=== PATIENT | male | born 1945 | race Caucasian/White ===

== ENCOUNTER 2018-04-22 15:28 | Inpatient (IN) | payer MEDICARE, OTHER ==
[~2018-04-22] VITALS: Ht 172.7 cm; Wt 78.2 kg
--- NOTE | 2018-04-22 15:55 | EKG ---
[address] [address] Test Date: 2018-04-22 Test Time: 15:38:39 Pat Name: WILLIAM VASQUEZ Department: Room: Gender: M Mechanical Maintenance Technician: SHERI : 1945 Requested By: JEAN PERLA Order Number: [id number] Reading MD: Darian Valderrama MD Measurements Intervals Apex Rate: 79 P: 36 CO: 144 QRS: 9 QRSD: 88 T: 37 QT: 344 QTc: 395 Interpretive Statements SR Electronically Signed On 04-28-2018 10:32:37 CDT by Darian Valderrama MD
--- NOTE | 2018-04-22 15:59 | RAD ---
CHEST AP ONLY dated 04/22/2018 3:29 PM. Comparison: None. Clinical Indication: SHORT OF AIR WITH EXHAUSTION TIMES 3 DAYS. Findings: Single upright portable exam performed. Heart and mediastinal contours are within normal limits. Lungs are clear without focal consolidation. Vascular interstitium within normal limits. No pleural effusion or pneumothorax. Mild elevation of right hemidiaphragm. Impression: Negative portable chest. Electronically signed by: Trent Hagan MD (04/22/2018 3:55 PM) [id number]
[2018-04-22] MEDS ORDERED: IV NORMAL SALINE 1,000ML 1,000 ML IV ONE ×3 (16:00→16:30)
[2018-04-22 16:06] LABS: BASO # 0.1 x10^3/uL (0.0-0.2); BASO % 1 % (0-3); EOS # 0.1 x10^3/uL (0.0-0.7); EOS % 1 % (0-3); HEMATOCRIT 39.5 % (39.0-53.0); HEMOGLOBIN 13.8 g/dL (13.0-17.5); LYMPH # 1.8 x10^3/uL (1.0-4.8); LYMPH % 19 % (24-48); MEAN CORPUSCULAR HEMOGLOBIN 31 pg (25-35); MEAN CORPUSCULAR HGB CONC 35 g/dL (31-37); MEAN CORPUSCULAR VOLUME 90 fL (79-100); MONO # 1.5 x10^3/uL (0.0-1.1); MONO % 16 % (0-9); NEUT # 5.8 x10^3uL (1.8-7.7); NEUT % 63 % (31-73); PLATELET COUNT 166 x10^3/uL (140-400); RED CELL DISTRIBUTION WIDTH 13.8 % (11.5-14.5); WHITE BLOOD COUNT 9.2 x10^3/uL (4.0-11.0)
[2018-04-22 16:20] LABS: ALBUMIN 3.7 g/dL (3.4-5.0); ALBUMIN/GLOBULIN RATIO 1.1 (1.0-1.7); CALCIUM 9.2 mg/dL (8.5-10.1); CREATININE 2.8 mg/dL (0.7-1.3); GFR 22.3; POTASSIUM 3.4 mmol/L (3.5-5.1); TOTAL BILIRUBIN 1.6 mg/dL (0.2-1.0); TOTAL PROTEIN 7.2 g/dL (6.4-8.2)
[2018-04-22 16:44] LABS: BACTERIA,URINE 0 /HPF (0-FEW); BILIRUBIN,URINE NEG (NEG); CLARITY,URINE HAZY; COLOR,URINE YELLOW; GLUCOSE,URINE NEG (NEG); NITRITE,URINE NEG (NEG); SQUAMOUS EPITHELIAL CELL,UR FEW /LPF; UROBILINOGEN,URINE 1 mg/dL (0.2 mg/dL)
[2018-04-22 16:45] LABS: HYALINE CASTS, URINE MOD /HPF
--- NOTE | 2018-04-22 17:13 | ED.ADGEN ---
Past History Past Medical History: GERD, Hypertension Past Surgical History: No Surgical History Alcohol Use: None Drug Use: None Adult General Chief Complaint Chief Complaint Generalized fatigue and loss of appetite HPI HPI Patient is a 72-year-old male with history of hypertension and GERD who presents with general fatigue and loss of appetite. Symptom onset was several days ago. Patient reports loss of energy decreased appetite and thirst. He has not been eating or drinking his usual daily intake. Denies fever chills, nausea vomiting or sweats. Denies abdominal pain chest pain. No urinary frequency urgency. No new medications or missed medications. No other acute symptoms or complaints. Been evaluated for symptoms prior to today's visit.[] Review of Systems Review of Systems Review symptoms as per history of present illness. All other review symptoms are negative. All other systems were reviewed and found to be within normal limits, except as documented in this note. Current Medications Current Medications Current Medications Medications (Trade) Dose Ordered Sig/Eduar Start Time Stop Time Status Last Admin Dose Admin Sodium Chloride 1,000 ml @ 1,000 mls/hr 1X ONCE 04/22/18 16:30 04/22/18 17:29 Allergies Allergies Allergies Coded Allergies Type Severity Reaction Last Updated Verified Penicillins Allergy Intermediate 04/22/18 Yes codeine Allergy Intermediate 04/22/18 Yes Physical Exam Physical Exam Constitutional: Well developed, well nourished, no acute distress, non-toxic appearance. [] HENT: Normocephalic, atraumatic, bilateral external ears normal, oropharynx moist, nose normal. [] Eyes: PERRLA, EOMI, conjunctiva normal. [] Neck: Normal range of motion, no tenderness. [] Cardiovascular:Heart rate regular rhythm, no murmur [] Lungs & Thorax: Bilateral breath sounds clear to auscultation [] Abdomen: Bowel sounds normal, soft, no tenderness. [] Skin: Warm, dry. [] Back: No tenderness, no CVA tenderness. [] Extremities: No tenderness. [] Neurologic: Alert and oriented X 3, normal motor function, normal sensory function, no focal deficits noted. [] Psychologic: Affect normal, judgement normal, mood normal. [] Current Patient Data Vital Signs Vital Signs Date Time Temp Pulse Resp B/P (MAP) Pulse Ox O2 Delivery O2 Flow Rate FiO2 04/22/18 16:25 85 18 103/54 (70) 98 Room Air 04/22/18 15:49 98.4 Lab Results Laboratory Tests Test 04/22/18 15:45 04/22/18 15:58 White Blood Count 9.2 x10^3/uL (4.0-11.0) Red Blood Count 4.40 x10^6/uL (4.30-5.70) Hemoglobin 13.8 g/dL (13.0-17.5) Hematocrit 39.5 % (39.0-53.0) Mean Corpuscular Volume 90 fL (79-100) Mean Corpuscular Hemoglobin 31 pg (25-35) Mean Corpuscular Hemoglobin Concent 35 g/dL (31-37) Red Cell Distribution Width 13.8 % (11.5-14.5) Platelet Count 166 x10^3/uL (140-400) Neutrophils (%) (Auto) 63 % (31-73) Lymphocytes (%) (Auto) 19 % (24-48) L Monocytes (%) (Auto) 16 % (0-9) H Eosinophils (%) (Auto) 1 % (0-3) Basophils (%) (Auto) 1 % (0-3) Neutrophils # (Auto) 5.8 x10^3uL (1.8-7.7) Lymphocytes # (Auto) 1.8 x10^3/uL (1.0-4.8) Monocytes # (Auto) 1.5 x10^3/uL (0.0-1.1) H Eosinophils # (Auto) 0.1 x10^3/uL (0.0-0.7) Basophils # (Auto) 0.1 x10^3/uL (0.0-0.2) Sodium Level 135 mmol/L (136-145) L Potassium Level 3.4 mmol/L (3.5-5.1) L Chloride Level 98 mmol/L (98-107) Carbon Dioxide Level 29 mmol/L (21-32) Anion Gap 8 (6-14) Blood Urea Nitrogen 35 mg/dL (8-26) H Creatinine 2.8 mg/dL (0.7-1.3) H Estimated GFR (Cockcroft-Gault) 22.3 BUN/Creatinine Ratio 13 (6-20) Glucose Level 118 mg/dL (70-99) H Calcium Level 9.2 mg/dL (8.5-10.1) Total Bilirubin 1.6 mg/dL (0.2-1.0) H Aspartate Amino Transferase (AST) 17 U/L (15-37) Alanine Aminotransferase (ALT) 18 U/L (16-63) Alkaline Phosphatase 56 U/L (46-116) Creatine Kinase 105 U/L (39-308) Troponin I Quantitative < 0.017 ng/mL (0-0.055) Total Protein 7.2 g/dL (6.4-8.2) Albumin 3.7 g/dL (3.4-5.0) Albumin/Globulin Ratio 1.1 (1.0-1.7) Urine Collection Type Unknown Urine Color Yellow Urine Clarity Hazy Urine pH 5.5 Urine Specific [place] 1.020 Urine Protein 30 mg/dl (NEG-TRACE) Urine Glucose (UA) Neg mg/dL (NEG) Urine Ketones (Stick) 15 mg/dL (NEG) Urine Blood Neg (NEG) Urine Nitrite Neg (NEG) Urine Bilirubin Neg (NEG) Urine Urobilinogen Dipstick 1 mg/dL (0.2 mg/dL) Urine Leukocyte Esterase Neg (NEG) Urine RBC 3-5 /HPF (0-2) Urine WBC 1-4 /HPF (0-4) Urine Squamous Epithelial Cells Few /LPF Urine Transitional Epithelial Cells Few /LPF Urine Bacteria 0 /HPF (0-FEW) Urine Hyaline Casts Mod /HPF Urine Mucus Mod /LPF EKG EKG [EKG: Reviewed] Radiology/Procedures Radiology/Procedures [] Course & Med Decision Making Course & Med Decision Making Pertinent Labs and Imaging studies reviewed. (See chart for details) [Blood pressure, symptoms mildly improved with treatment. Baseline creatinine is 1.7. Today's creatinine is 2.8. Will admit to the hospital for further evaluation and treatment.] Final Impression Final Impression [1. Acute kidney injury 2. Generalized weakness] Dragon Disclaimer Dragon Disclaimer This electronic medical record was generated, in whole or in part, using a voice recognition dictation system. JEAN PERLA DO Apr 22, 2018 17:12
[2018-04-22 17:54] VITALS: BP 125/71
[2018-04-22] MEDS ORDERED: ASPI-630 PO (18:10)
[2018-04-22] MEDS ORDERED: LOSA1TAB22 PO (18:10)
[2018-04-22] MEDS ORDERED: GABA800T2 PO (18:10)
[2018-04-22] MEDS ORDERED: MELO15TA6 PO (18:10)
[2018-04-22] MEDS ORDERED: FLUO20CA16 PO (18:10)
[2018-04-22] MEDS ORDERED: ZOLP10TA PO (18:10)
[2018-04-22] MEDS ORDERED: OMEP20CA9 PO (18:10)
[2018-04-22] MEDS ORDERED: ATOR20TA PO (18:10)
[2018-04-22 20:07] VITALS: BP 112/68
[2018-04-22] MEDS ORDERED: ZOLPIDEM 5 MG TABLET. PO PRN (20:15)
[2018-04-22] MEDS: ZOLPIDEM 5 MG TABLET. PO SCH (21:13)
[2018-04-22] MEDS: PANTOPRAZOLE 40 MG TABLET. PO SCH (21:13)
[2018-04-22] MEDS: ATORVASTATIN CALCIUM 20 MG TABLET PO SCH (21:13)
[2018-04-22 22:33] VITALS: BP 115/70
[2018-04-23 05:30] VITALS: BP 128/77
[2018-04-23 07:46] LABS: CALCIUM 8.4 mg/dL (8.5-10.1); CREATININE 2.6 mg/dL (0.7-1.3); GFR 24.3; POTASSIUM 4.1 mmol/L (3.5-5.1)
[2018-04-23 07:49] LABS: BASO # 0.1 x10^3/uL (0.0-0.2); BASO % 1 % (0-3); EOS % 0 % (0-3); HEMATOCRIT 35.2 % (39.0-53.0); HEMOGLOBIN 12.3 g/dL (13.0-17.5); LYMPH # 1.1 x10^3/uL (1.0-4.8); LYMPH % 14 % (24-48); MEAN CORPUSCULAR HEMOGLOBIN 31 pg (25-35); MEAN CORPUSCULAR HGB CONC 35 g/dL (31-37); MEAN CORPUSCULAR VOLUME 90 fL (79-100); MONO # 1.1 x10^3/uL (0.0-1.1); MONO % 14 % (0-9); NEUT # 5.7 x10^3uL (1.8-7.7); NEUT % 71 % (31-73); PLATELET COUNT 155 x10^3/uL (140-400); RED BLOOD COUNT 3.94 x10^6/uL (4.30-5.70); RED CELL DISTRIBUTION WIDTH 13.8 % (11.5-14.5)
[2018-04-23] MEDS ORDERED: FLUoxetine HCL 20 MG CAPSULE PO SCH (08:00)
[2018-04-23] MEDS: ASPIRIN 81 MG TAB.CHEW PO SCH (08:31)
[2018-04-23] MEDS: GABAPENTIN 400 MG CAPSULE. PO SCH (08:31)
[2018-04-23 11:00] VITALS: BP 118/62
--- NOTE | 2018-04-23 15:31 | RAD ---
PQRS Compliance Statement: One or more of the following individualized dose reduction techniques were utilized for this examination: 1. Automated exposure control 2. Adjustment of the mA and/or kV according to patient size 3. Use of iterative reconstruction technique CT ABDOMEN PELVIS WO CONTRAST Clinical Indication: Acute on chronic kidney injury. No previous surgery or injury to abdomen Comparison: None. Technique: Helical CT imaging of the abdomen and pelvis is performed without IV or oral contrast. Findings: Evaluation of solid organs and bowel is limited without oral and IV contrast, decreasing sensitivity for detection of pathology. Consolidation in the posterior right lower lobe is mild to moderate. Mild atelectasis or scarring in the left lower lobe. Cardiac size normal. Cholelithiasis. Liver, spleen, pancreas, adrenal glands, and abdominal aorta caliber are normal. Bilateral perinephric stranding. No renal calculus. No ureteral calculus. No hydronephrosis. Urinary bladder is normal. Stomach unremarkable. No abdominal adenopathy or free fluid. No dilated small bowel. No colon wall thickening. No secondary signs of appendicitis. Small bilateral fat-containing inguinal hernias. Prostate is mildly enlarged. Degenerative spondylosis of the thoracolumbar spine. IMPRESSION: 1. Mild to moderate consolidation in the posterior right lower lobe. Considerations include atelectasis, pneumonia, aspiration, or scarring. 2. No hydronephrosis. Bilateral perinephric stranding, considerations include normal variant for patient age versus renal insufficiency. Please note noncontrast CT is not sensitive for evaluation of pyelonephritis. 3. Cholelithiasis. 4. Prostate is mildly enlarged. Electronically signed by: Jose Roberto Rodgers MD (04/23/2018 3:28 PM) [id number]
[2018-04-23 15:53] VITALS: BP 134/67
--- NOTE | 2018-04-23 16:19 | HP ---
ADMIT DATE: 04/22/2018 HISTORY OF PRESENT ILLNESS: The patient is a 72-year-old male patient who came to the Emergency Room complaining of generalized aches and pains, fatigue, loss of appetite, headache who has not been eating or drinking his usual daily intake. Denied any fever, chills, nausea, vomiting, or sweats. Denied any abdominal pain or chest pain. Denied any urinary frequency, dysuria, or hematuria. Apparently, he was not started on any new medication. He has not missed any of his medication and was evaluated in the Emergency Room and his lab work showed that his kidney function has risen from his baseline creatinine of 1.7 in October of this year to 2.8. He was also found to be mildly hypokalemic. He was admitted for further evaluation and management. PAST MEDICAL HISTORY: Significant for hypertension, hyperlipidemia, generalized osteoarthritis, bilateral cataracts, benign prostatic hypertrophy, and chronic renal failure. PAST SURGICAL HISTORY: Significant for 4 back surgeries, 3 shoulder surgeries, left hand surgeries, esophagogastroduodenoscopy, and colonoscopy. He has also had a prostate biopsy. 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 ALLERGIES: He is allergic to PENICILLIN and CODEINE. MEDICATIONS: He is currently on following medications: He is on atorvastatin calcium 20 mg at bedtime, losartan/hydrochlorothiazide 100/25 one tablet daily, aspirin 81 mg once a day, meloxicam 15 mg once a day, gabapentin 800 mg daily, Prozac 20 mg daily, Ambien 10 mg at bedtime, and omeprazole 20 mg daily. FAMILY HISTORY: He has one older sister who is alive at the age of 90 and healthy. One sister in her 80s because of coronary artery disease. One brother at the age of 65 because of cancer and another brother at the age of 76 because of Parkinson's disease and Alzheimer's disease. His father at the age of 76, the cause of is not very clear. His mother in her 80s because of colon cancer. SOCIAL HISTORY: He is , has 3 sons. He never smoked, does not drink alcohol or use recreational drugs. He worked at the [employer] for 34 years. REVIEW OF SYSTEMS: The patient has had bilateral cataracts, but was not advised to have been extracted yet. Denied any glaucoma or macular degeneration. Denied any earache, tinnitus, or sensorineural deafness. Denied any nosebleeds, stuffy nose, or postnasal drip. Denied any sore throat, sore tongue, toothache, hoarseness of voice, or difficulty swallowing. Denied any nausea, vomiting, diarrhea, or constipation. Did complain of anorexia and weight loss of about 4 pounds. Denied any hematemesis, melena, or hematochezia. Denied any dysuria, frequency, or hematuria. Denied any nocturia. Denied any chest pain, shortness of breath, orthopnea, or paroxysmal nocturnal dyspnea. Denied any cough, phlegm, or hemoptysis. Denied any dizziness, lightheadedness, or vertigo. PHYSICAL EXAMINATION: GENERAL: On arrival to the Emergency Room, he looked well and was clearly in no apparent respiratory distress, slightly pale, but no jaundice, cyanosis, or thyromegaly. No jugular venous distention. No limb edema. VITAL SIGNS: His heart rate was 82, blood pressure was 103/54, temperature was 98.4, respiratory rate was 18, and oxygen saturation was 96% on room air. HEAD, EYES, EARS, NOSE, AND THROAT: Showed normocephalic, atraumatic. NECK: Supple. HEART: Showed normal first and second heart sounds with no gallop, rub, or murmur. CHEST: Clear to auscultation. No crepitation or rhonchi. ABDOMEN: Distended, soft, nontender. No guarding or rigidity. No organomegaly. All hernial orifice intact. Bowel sounds normal. NEUROLOGIC: He was awake, alert, responding appropriately. Cranial nerves intact. He moves extremities without difficulty and ambulates without assistance or assistive devices. LABORATORY DATA: His lab work on admission showed a white cell count of 9200, hemoglobin 14, hematocrit 40, MCV 90, and platelet count of 166,000 with normal manual differential. His chemistry showed a serum sodium of 135, potassium 3.4, chloride 98, bicarbonate 29, anion gap of 8, BUN 35, creatinine 2.8, estimated GFR was 22 mL per minute. His glucose was 118, calcium was 9.2. Total bilirubin was 1.6. AST, ALT, alkaline phosphatase were normal. His troponin was less than 0.017. Total protein was 7.2. Albumin was 3.7. Urinalysis showed the urine was yellow, hazy with a pH of 5.5, specific gravity of 1.020, small amount of protein, negative for glucose, trace of ketones, negative for blood, nitrite, bilirubin and leukocyte esterase, 2-5 rbc's, 1-4 wbc's, very few renal cell epithelium cells, no bacteria, moderate amount of hyaline casts. His chest x-ray showed that the heart and mediastinal contours are within normal limits. Lungs are clear without focal consolidation. Vascular interstitium within normal limits. No pleural effusion or pneumothorax. Mild elevation of the right hemidiaphragm. ASSESSMENT AND PLAN: The patient was admitted with generalized weakness, fatigue, aches and pains, anorexia, and poor oral intake that started about 4 days ago and continued. He could not be seen at his primary care physician and ended up in the Emergency Room where he was found to have acute on chronic kidney injury. The patient was started on IV fluid and we held his losartan, hydrochlorothiazide, and Meloxicam as all potentially nephrotoxic medications. We will arrange for him to scan his bladder which showed that he has no bladder obstruction. Given that he is known to have benign prostatic hypertrophy, we will check also abdominal ultrasound and decide on further management accordingly. Continue with IV fluid. Repeat all his labs. YUN SHANKAR MD DR: JORGE/rajat JOB#: [id number] / [id number]
[2018-04-23 17:09] VITALS: BP 134/69
[2018-04-23] MEDS: ACETAMINOPHEN 325 MG TABLET PO PRN (17:40)
[2018-04-23] MEDS: PANTOPRAZOLE 40 MG TABLET. PO SCH (18:08)
[2018-04-23] MEDS: ATORVASTATIN CALCIUM 20 MG TABLET PO SCH (18:08)
[2018-04-23] MEDS: MEROPENEM 500 MG in IV NORMAL SALINE 50ML 50 ML IV SCH ×2 (19:11→21:57)
[2018-04-23 19:26] VITALS: BP 120/71
[2018-04-23] MEDS: LACTOBACILLUS RHAMNOSUS GG 1 CAPSULE. PO SCH (21:04)
[2018-04-23] MEDS: IV NORMAL SALINE 1,000ML 1,000 ML IV SCH (21:04)
[2018-04-23] MEDS: ZOLPIDEM 5 MG TABLET. PO SCH (21:04)
--- NOTE | 2018-04-23 22:06 | PN ---
DATE: 04/23/2018 SUBJECTIVE: The patient is resting, slightly propped up in bed comfortably, in no apparent distress. He is feeling generally better. His appetite is improving. He has eaten and drank more and feeling generally slightly much improved than before. He was admitted yesterday with acute on chronic kidney injury. His serum creatinine was 1.7 on 10/22/2017 at his primary care physician's office, Dr. Oakley and yesterday when he came to the hospital, his creatinine was 2.8. We did start him on IV fluid and his creatinine is slightly down today at 2.6. His bladder was scanned and he voided about 200. He has only about 170 mL retained postvoid volume. He is known to have benign prostatic hypertrophy and was on Flomax that he stopped about 2 weeks ago because it makes him sick to his stomach. His medications consist of losartan/hydrochlorothiazide. He was also on meloxicam. Apparently, he was taking his medications regularly while his appetite and oral intake is poor and probably that is the reason why he has acute on chronic kidney injury. PHYSICAL EXAMINATION: GENERAL: When I saw him today, he looked well and was clearly in no apparent respiratory distress, slightly pale, no jaundice, cyanosis, or thyromegaly. No jugular venous distension. No limb edema. VITAL SIGNS: His heart rate was 78, blood pressure 125/71, temperature was 98.7, respiratory rate 20, and oxygen saturation was 96% on room air. HEAD, EYES, EARS, NOSE, AND THROAT: Showed normocephalic, atraumatic. NECK: Supple. HEART: Showed normal first and second heart sounds with no gallop, rub, or murmur. CHEST: Clear to auscultation. No crepitation or rhonchi. ABDOMEN: Distended, soft, nontender. NEUROLOGIC: He is awake, alert, responding appropriately. All cranial nerves intact. He moves extremities without difficulty. He ambulates without assistance or assistive devices. His intake over the last 24 hours was 1755 and no output was recorded. LABORATORY DATA: As of this morning, his serum sodium was 136, potassium 4.1, chloride 103, bicarbonate 26, anion gap of 7, BUN 34, creatinine 2.6, estimated GFR was 24 mL per minute, his glucose 101, calcium was 8.4. His CK was only 105. His white cell count was 8000, hemoglobin 12, hematocrit 35, MCV 90, and platelet count of 155,000. ASSESSMENT: Acute on chronic kidney injury. His serum creatinine in October was 1.7, yesterday on admission was 2.8, today it is down to 2.6. The kidney injury is probably multifactorial and due to poor oral intake and volume depletion compounded by the fact he was on losartan, hydrochlorothiazide as well as meloxicam. Other medical problems include hypertension, hyperlipidemia, osteoarthritis, and benign prostatic hypertrophy, although he does not seem to have a bladder outlet obstruction, although he does contain some urine. PLAN: My plan is to continue holding his losartan, hydrochlorothiazide, as well as meloxicam. Continue with other medication. Continue with IV fluid. We will arrange for him to have CT scan of the abdomen and pelvis without contrast to rule out any obstruction and repeat all his lab works tomorrow including sed rate and C-reactive protein. YUN SHANKAR MD DR: JORGE/rajat JOB#: [id number] / [id number]
[2018-04-23 22:35] VITALS: BP 130/70
[2018-04-24] MEDS: IV NORMAL SALINE 1,000ML 1,000 ML IV SCH ×3 (02:15→21:01)
[2018-04-24 05:09] VITALS: BP 143/68
[2018-04-24] MEDS: MEROPENEM 500 MG in IV NORMAL SALINE 50ML 50 ML IV SCH ×3 (06:03→20:52)
[2018-04-24 07:11] LABS: CALCIUM 8.1 mg/dL (8.5-10.1); CREATININE 1.9 mg/dL (0.7-1.3); GFR 34.9; POTASSIUM 3.6 mmol/L (3.5-5.1)
[2018-04-24] MEDS ORDERED: ONDANSETRON PF 4 MG/2 ML VIAL. IV PRN (08:45)
[2018-04-24] MEDS: ACETAMINOPHEN 325 MG TABLET PO PRN ×2 (09:05→21:59)
[2018-04-24] MEDS: GABAPENTIN 400 MG CAPSULE. PO SCH (10:30)
[2018-04-24] MEDS: LACTOBACILLUS RHAMNOSUS GG 1 CAPSULE. PO SCH ×2 (10:30→20:52)
[2018-04-24] MEDS: ASPIRIN 81 MG TAB.CHEW PO SCH (10:30)
[2018-04-24 10:35] VITALS: BP 105/66
[2018-04-24 14:30] VITALS: BP 164/79
--- NOTE | 2018-04-24 16:02 | RAD ---
Abdominal ultrasound, 04/24/2018: HISTORY: Fever, abnormal liver function test The gallbladder is within normal limits in size. There are echogenic foci in the gallbladder with posterior acoustic shadowing compatible with gallstones. The gallbladder mcneil are not thickened. The common hepatic duct is of normal caliber. No hepatic abnormality is seen. The pancreas was largely obscured by overlying bowel. The upper abdominal aorta is unremarkable. The distal aorta was obscured by bowel. The visualized portions of the inferior vena cava are unremarkable. The spleen is of normal size. No renal abnormality is detected. No free fluid is evident in the abdomen. IMPRESSION: Cholelithiasis Electronically signed by: Audi House MD (04/24/2018 3:59 PM) [facility]
[2018-04-24] MEDS: PANTOPRAZOLE 40 MG TABLET. PO SCH (16:32)
[2018-04-24] MEDS: ATORVASTATIN CALCIUM 20 MG TABLET PO SCH (16:32)
[2018-04-24 19:23] VITALS: BP 117/56
[2018-04-24] MEDS: ZOLPIDEM 5 MG TABLET. PO SCH (20:52)
[2018-04-24 22:16] VITALS: BP 146/79
--- NOTE | 2018-04-25 00:42 | PN ---
DATE: 04/24/2018 SUBJECTIVE: The patient is resting, slightly propped up in bed, in no apparent distress. He did spike his temperature yesterday up to 102.9 and we did panculture him. His CT scan of the abdomen and pelvis showed that he has [id number] consolidation in the posterior right lower lobe and the consideration would include atelectasis, pneumonia, aspiration or scarring. There is no hydronephrosis, but has bilateral perinephric stranding, consideration include normal variant for the patient's age versus renal insufficiency, has also cholelithiasis and prostate is mildly enlarged. He did complain of headache this morning and also some nausea and dry heaving, could not eat his breakfast; however, at the time I saw him this afternoon, he stated that he is doing well and is feeling generally much better. PHYSICAL EXAMINATION: GENERAL: When I examined him, he was somewhat pale, but no jaundice, cyanosis, or thyromegaly. No jugular venous distention. No lower limb edema. VITAL SIGNS: His heart rate was 67, blood pressure was 105/66, temperature was 98.3, respiratory rate was 18 and oxygen saturation was 95% on room air. HEAD, EYES, EARS, NOSE AND THROAT: Showed normocephalic, atraumatic. NECK: Supple. HEART: Showed normal first and second sounds. No gallop, rub or murmur. CHEST: Shows central trachea, equal bilateral expansion air entry, vesicular sounds with crepitation mostly in the right side posteriorly. ABDOMEN: Distended, soft, nontender. NEUROLOGIC: He is awake, alert, responding appropriately. All cranial nerves are intact. He moves extremities without difficulty. He ambulates without assistance or assistive devices. His intake over the last 24 hours was 1750, output was incompletely recorded. LABORATORY DATA: His lab work this morning showed a white cell count of 8000, hemoglobin 12, hematocrit 35, MCV 90 and platelet count of 155,000. His sed rate was 18 mmHg. His chemistry this morning showed a serum sodium 133, potassium 3.6, chloride 101, bicarbonate 24, anion gap of 8, BUN 22, creatinine was 1.9, estimated GFR was 35 mL per minute, his glucose 147, calcium was 8.1. C-reactive protein was 68 mg/dL. ASSESSMENT: 1. [id number] kidney injury, resolving. His creatinine is down from 2.8 to 1.9. His baseline in October of this year was 1.7. 2. Fever with right lower lobe pneumonia for which he is on IV meropenem as well as Zyvox. 3. He has also bilateral perinephric stranding with possibility of pyelonephritis. Unfortunately, the lack of contrast makes it difficult to confirm or refute that. 4. Other medical problems include hypertension. 5. Hyperlipidemia. 6. Osteoarthritis. 7. Benign prostatic hypertrophy; however, CT scan showed no evidence of hydronephrosis or bladder outlet obstruction. PLAN: My plan is to continue with IV antibiotic, await the result of culture and sensitivity and decide on further management accordingly. As he has cholelithiasis, I would also order tomorrow the abdominal ultrasound and we will decide on further management accordingly. YUN SHANKAR MD DR: JORGE/rajat JOB#: [id number] / [id number]
[2018-04-25 05:48] VITALS: BP 126/69
[2018-04-25] MEDS: IV NORMAL SALINE 1,000ML 1,000 ML IV SCH ×2 (05:54→14:53)
[2018-04-25] MEDS: MEROPENEM 500 MG in IV NORMAL SALINE 50ML 50 ML IV SCH ×3 (05:54→21:06)
[2018-04-25 06:14] LABS: HEMATOCRIT 29.9 % (39.0-53.0); HEMOGLOBIN 10.5 g/dL (13.0-17.5); RED BLOOD COUNT 3.34 x10^6/uL (4.30-5.70); RED CELL DISTRIBUTION WIDTH 13.5 % (11.5-14.5); WHITE BLOOD COUNT 6.6 x10^3/uL (4.0-11.0)
[2018-04-25 06:31] LABS: ALBUMIN 2.4 g/dL (3.4-5.0); ALBUMIN/GLOBULIN RATIO 0.9 (1.0-1.7); ALK PHOS 41 U/L (46-116); ANION GAP 9 (6-14); AST (SGOT) 17 U/L (15-37); BLOOD UREA NITROGEN 16 mg/dL (8-26); BUN/CREATININE RATIO 9 (6-20); CALCIUM 7.9 mg/dL (8.5-10.1); CARBON DIOXIDE 25 mmol/L (21-32); CHLORIDE 102 mmol/L (98-107); CREATININE 1.8 mg/dL (0.7-1.3); GFR 37.2; GLUCOSE 143 mg/dL (70-99); POTASSIUM 3.5 mmol/L (3.5-5.1); SODIUM 136 mmol/L (136-145); TOTAL BILIRUBIN 0.9 mg/dL (0.2-1.0); TOTAL PROTEIN 5.2 g/dL (6.4-8.2)
[2018-04-25 06:33] LABS: ALT (SGPT) < 6 U/L (16-63)
[2018-04-25] MEDS: ASPIRIN 81 MG TAB.CHEW PO SCH (08:31)
[2018-04-25] MEDS: LACTOBACILLUS RHAMNOSUS GG 1 CAPSULE. PO SCH ×2 (08:31→21:06)
[2018-04-25] MEDS: GABAPENTIN 400 MG CAPSULE. PO SCH (08:31)
[2018-04-25 11:25] VITALS: BP 146/75
[2018-04-25 13:00] VITALS: BP 138/72
[2018-04-25] MEDS ORDERED: IV NORMAL SALINE 1,000ML 1,000 ML IV SCH (16:05)
[2018-04-25] MEDS: ATORVASTATIN CALCIUM 20 MG TABLET PO SCH (17:19)
[2018-04-25] MEDS: PANTOPRAZOLE 40 MG TABLET. PO SCH (17:19)
[2018-04-25 19:10] VITALS: BP 122/66
[2018-04-25] MEDS: ZOLPIDEM 5 MG TABLET. PO SCH (21:06)
[2018-04-25] MEDS: ACETAMINOPHEN 325 MG TABLET PO PRN (21:11)
--- NOTE | 2018-04-25 21:21 | PDOC ---
SUBJECTIVE: I find the patient standing up leaning against the wall in his room talking with family. He is pleasant and denies any further n/v. He has been afebrile with stable vitals, still hasn't had return of his appetite. I reviewed RUQ US results with him--cholelithiasis no cholecystitis patient denies cough or wheeze. Denies any focal pain complaints. Blood cultures have come back negative and his kidney function continues to improve (BUN 16, Cr 1.8) with 1.8 baseline creatinine from October. Labs reviewed, albumin 2.5 corrected calcium 9.5. OBJECTIVE: Problems: Problems Medical Problems: (1) Acute kidney injury Status: Acute Vital Signs: Vital Signs Date Time Temp Pulse Resp B/P (MAP) Pulse Ox O2 Delivery O2 Flow Rate FiO2 04/25/18 20:34 Room Air 04/25/18 19:10 99.8 81 20 122/66 (84) 96 I & O Intake and Output 04/25/18 06:59 Intake Total 3571 ml Output Total 1525 ml Balance 2046 ml Intake Oral 240 ml IV Total 3331 ml Output Urine Total 1525 ml # Bowel Movements 1 Labs: Laboratory Tests Test 04/24/18 06:17 04/25/18 05:50 Erythrocyte Sedimentation Rate 18 (0-15) Sodium Level 133 mmol/L (136-145) 136 mmol/L (136-145) Potassium Level 3.6 mmol/L (3.5-5.1) 3.5 mmol/L (3.5-5.1) Chloride Level 101 mmol/L (98-107) 102 mmol/L (98-107) Carbon Dioxide Level 24 mmol/L (21-32) 25 mmol/L (21-32) Anion Gap 8 (6-14) 9 (6-14) Blood Urea Nitrogen 22 mg/dL (8-26) 16 mg/dL (8-26) Creatinine 1.9 mg/dL (0.7-1.3) 1.8 mg/dL (0.7-1.3) Estimated GFR (Cockcroft-Gault) 34.9 37.2 Glucose Level 147 mg/dL (70-99) 143 mg/dL (70-99) Calcium Level 8.1 mg/dL (8.5-10.1) 7.9 mg/dL (8.5-10.1) C-Reactive Protein 68.0 mg/L (0-3.3) White Blood Count 6.6 x10^3/uL (4.0-11.0) Red Blood Count 3.34 x10^6/uL (4.30-5.70) Hemoglobin 10.5 g/dL (13.0-17.5) Hematocrit 29.9 % (39.0-53.0) Mean Corpuscular Volume 90 fL (79-100) Mean Corpuscular Hemoglobin 32 pg (25-35) Mean Corpuscular Hemoglobin Concent 35 g/dL (31-37) Red Cell Distribution Width 13.5 % (11.5-14.5) Platelet Count 155 x10^3/uL (140-400) BUN/Creatinine Ratio 9 (6-20) Total Bilirubin 0.9 mg/dL (0.2-1.0) Aspartate Amino Transf (AST/SGOT) 17 U/L (15-37) Alanine Aminotransferase (ALT/SGPT) < 6 U/L (16-63) Alkaline Phosphatase 41 U/L (46-116) Total Protein 5.2 g/dL (6.4-8.2) Albumin 2.4 g/dL (3.4-5.0) Albumin/Globulin Ratio 0.9 (1.0-1.7) Physical Exam: GEN: NAD, AOx3, ambulatory in his room HEENT: nose/throat clear, NCAT, moist membranes NECK: supple, nontender CVS: regular rate no murmur PULM: CTAB, good air movement no respiratory distress ABD: SNTND, normal BS EXT: no c/c/e, nontender ASSESSMENT: RLL Pneumonia Acute on chronic renal insufficiency Cholelithiasis Anorexia PLAN: Continue IV antibiotics and serum monitoring. Encourage PO intake and increased activity. If continued improvement consider possible d/c home tomorrow. KEN MENCHACA DO Apr 25, 2018 21:21
[2018-04-25 21:33] VITALS: BP 123/74
[2018-04-25 22:30] LABS: BASO # 0.1 x10^3/uL (0.0-0.2); BASO % 1 % (0-3); EOS # 0.1 x10^3/uL (0.0-0.7); EOS % 1 % (0-3); HEMATOCRIT 31.2 % (39.0-53.0); HEMOGLOBIN 10.9 g/dL (13.0-17.5); LYMPH # 1.4 x10^3/uL (1.0-4.8); LYMPH % 19 % (24-48); MEAN CORPUSCULAR HEMOGLOBIN 31 pg (25-35); MEAN CORPUSCULAR HGB CONC 35 g/dL (31-37); MEAN CORPUSCULAR VOLUME 89 fL (79-100); MONO # 0.9 x10^3/uL (0.0-1.1); MONO % 12 % (0-9); NEUT # 5.1 x10^3uL (1.8-7.7); NEUT % 67 % (31-73); PLATELET COUNT 177 x10^3/uL (140-400); RED BLOOD COUNT 3.49 x10^6/uL (4.30-5.70); RED CELL DISTRIBUTION WIDTH 13.8 % (11.5-14.5); WHITE BLOOD COUNT 7.5 x10^3/uL (4.0-11.0)
[2018-04-25 22:42] LABS: ALBUMIN 2.4 g/dL (3.4-5.0); ALBUMIN/GLOBULIN RATIO 0.9 (1.0-1.7); CALCIUM 7.6 mg/dL (8.5-10.1); CREATININE 1.7 mg/dL (0.7-1.3); GFR 39.7; MAGNESIUM 1.3 mg/dL (1.8-2.4); POTASSIUM 3.7 mmol/L (3.5-5.1); TOTAL BILIRUBIN 0.8 mg/dL (0.2-1.0); TOTAL PROTEIN 5.2 g/dL (6.4-8.2)
[2018-04-25 23:25] VITALS: BP 135/71
[2018-04-25] MEDS ORDERED: NITROGLYCERIN SUBLINGUAL 0.4 MG BOTTLE OF 25. SL PRN (23:30)
[2018-04-25] MEDS ORDERED: ASPIRIN 81 MG TAB.CHEW PO ONE (23:45)
[2018-04-26 05:48] VITALS: BP 144/75
[2018-04-26] MEDS: MEROPENEM 500 MG in IV NORMAL SALINE 50ML 50 ML IV SCH ×3 (06:07→22:12)
[2018-04-26 06:40] LABS: BASO # 0.1 x10^3/uL (0.0-0.2); BASO % 1 % (0-3); EOS # 0.1 x10^3/uL (0.0-0.7); EOS % 2 % (0-3); HEMATOCRIT 31.5 % (39.0-53.0); HEMOGLOBIN 11.1 g/dL (13.0-17.5); LYMPH # 1.3 x10^3/uL (1.0-4.8); LYMPH % 18 % (24-48); MEAN CORPUSCULAR HEMOGLOBIN 32 pg (25-35); MEAN CORPUSCULAR HGB CONC 35 g/dL (31-37); MEAN CORPUSCULAR VOLUME 90 fL (79-100); MONO # 0.7 x10^3/uL (0.0-1.1); MONO % 10 % (0-9); NEUT # 5.1 x10^3uL (1.8-7.7); NEUT % 70 % (31-73); PLATELET COUNT 186 x10^3/uL (140-400); RED BLOOD COUNT 3.51 x10^6/uL (4.30-5.70); RED CELL DISTRIBUTION WIDTH 13.5 % (11.5-14.5); WHITE BLOOD COUNT 7.3 x10^3/uL (4.0-11.0)
[2018-04-26 06:45] LABS: CALCIUM 8.1 mg/dL (8.5-10.1); CREATININE 1.6 mg/dL (0.7-1.3); GFR 42.6; POTASSIUM 3.8 mmol/L (3.5-5.1)
[2018-04-26] MEDS: LACTOBACILLUS RHAMNOSUS GG 1 CAPSULE. PO SCH ×2 (09:23→20:49)
[2018-04-26] MEDS: ASPIRIN 81 MG TAB.CHEW PO SCH (09:23)
[2018-04-26] MEDS: GABAPENTIN 400 MG CAPSULE. PO SCH (09:24)
--- NOTE | 2018-04-26 10:03 | EKG ---
[address] [address] Test Date: 2018-04-25 Test Time: 21:52:37 Pat Name: WILLIAM VASQUEZ Department: Room: 123 A Gender: M Lunch Cook: JUAN : 1945 Requested By: KEN MENCHACA Order Number: [id number] Reading MD: Darian Valderrama MD Measurements Intervals [place] Rate: 89 P: CT: QRS: 38 QRSD: 90 T: 44 QT: 360 QTc: 439 Interpretive Statements SR PAC'S Electronically Signed On 04-30-2018 15:11:42 CDT by Darian Valderrama MD
--- NOTE | 2018-04-26 10:23 | PDOC ---
SUBJECTIVE: I received a phone call last night from the patient's nurse to advise that the patient was having episodes of what she described as irregular tachyarrhythmias with PVCs. They were able to capture a telemetry strip with heart rate in the 140s. Throughout questioning I learned that at no time did the patient experience any chest pain dyspnea diaphoresis nausea and appeared to be asymptomatic. This event could not be related to any intake or activity, I requested the nurse obtain an EKG, serial cardiac enzymes, and cardiology consultation for the morning to evaluate tachyarrhythmia. Today I find the patient sleeping in bed. He states that at no time did he experience any chest tightness or pain, no dyspnea or palpitations no dizziness or other associated symptoms. He and his are very concerned however and grateful they can see a commodity management specialist. Patient says he feels tired today and still has not developed an appetite. Aside from his heart rate remainder of his vitals are been stable, 3 sets of cardiac enzymes negative, and his kidney function is still improved BUN 12 creatinine 1.6. He continues to have no typical pneumonia symptoms no cough fevers chills or dyspnea. OBJECTIVE: Problems: Problems Medical Problems: (1) Acute kidney injury Status: Acute I reviewed the EKG from last night: P waves present sinus rhythm at 89 bpm there was a great amount of artifact especially laterally no true STEMI changes. Vital Signs: Vital Signs Date Time Temp Pulse Resp B/P (MAP) Pulse Ox O2 Delivery O2 Flow Rate FiO2 04/26/18 05:48 97.8 74 20 144/75 (98) 94 Room Air I & O Intake and Output 04/26/18 07:00 Intake Total 830 ml Output Total 1500 ml Balance -670 ml Intake Oral 480 ml IV Total 350 ml Output Urine Total 1500 ml Labs: Laboratory Tests Test 04/25/18 05:50 04/25/18 22:18 04/26/18 02:16 04/26/18 06:25 White Blood Count 6.6 x10^3/uL (4.0-11.0) 7.5 x10^3/uL (4.0-11.0) 7.3 x10^3/uL (4.0-11.0) Red Blood Count 3.34 x10^6/uL (4.30-5.70) 3.49 x10^6/uL (4.30-5.70) 3.51 x10^6/uL (4.30-5.70) Hemoglobin 10.5 g/dL (13.0-17.5) 10.9 g/dL (13.0-17.5) 11.1 g/dL (13.0-17.5) Hematocrit 29.9 % (39.0-53.0) 31.2 % (39.0-53.0) 31.5 % (39.0-53.0) Mean Corpuscular Volume 90 fL (79-100) 89 fL (79-100) 90 fL (79-100) Mean Corpuscular Hemoglobin 32 pg (25-35) 31 pg (25-35) 32 pg (25-35) Mean Corpuscular Hemoglobin Concent 35 g/dL (31-37) 35 g/dL (31-37) 35 g/dL (31-37) Red Cell Distribution Width 13.5 % (11.5-14.5) 13.8 % (11.5-14.5) 13.5 % (11.5-14.5) Platelet Count 155 x10^3/uL (140-400) 177 x10^3/uL (140-400) 186 x10^3/uL (140-400) Sodium Level 136 mmol/L (136-145) 137 mmol/L (136-145) 138 mmol/L (136-145) Potassium Level 3.5 mmol/L (3.5-5.1) 3.7 mmol/L (3.5-5.1) 3.8 mmol/L (3.5-5.1) Chloride Level 102 mmol/L (98-107) 103 mmol/L (98-107) 106 mmol/L (98-107) Carbon Dioxide Level 25 mmol/L (21-32) 24 mmol/L (21-32) 26 mmol/L (21-32) Anion Gap 9 (6-14) 10 (6-14) 6 (6-14) Blood Urea Nitrogen 16 mg/dL (8-26) 14 mg/dL (8-26) 12 mg/dL (8-26) Creatinine 1.8 mg/dL (0.7-1.3) 1.7 mg/dL (0.7-1.3) 1.6 mg/dL (0.7-1.3) Estimated GFR (Cockcroft-Gault) 37.2 39.7 42.6 BUN/Creatinine Ratio 9 (6-20) 8 (6-20) Glucose Level 143 mg/dL (70-99) 94 mg/dL (70-99) 140 mg/dL (70-99) Calcium Level 7.9 mg/dL (8.5-10.1) 7.6 mg/dL (8.5-10.1) 8.1 mg/dL (8.5-10.1) Total Bilirubin 0.9 mg/dL (0.2-1.0) 0.8 mg/dL (0.2-1.0) Aspartate Amino Transf (AST/SGOT) 17 U/L (15-37) 21 U/L (15-37) Alanine Aminotransferase (ALT/SGPT) < 6 U/L (16-63) 18 U/L (16-63) Alkaline Phosphatase 41 U/L (46-116) 47 U/L (46-116) Total Protein 5.2 g/dL (6.4-8.2) 5.2 g/dL (6.4-8.2) Albumin 2.4 g/dL (3.4-5.0) 2.4 g/dL (3.4-5.0) Albumin/Globulin Ratio 0.9 (1.0-1.7) 0.9 (1.0-1.7) Neutrophils (%) (Auto) 67 % (31-73) 70 % (31-73) Lymphocytes (%) (Auto) 19 % (24-48) 18 % (24-48) Monocytes (%) (Auto) 12 % (0-9) 10 % (0-9) Eosinophils (%) (Auto) 1 % (0-3) 2 % (0-3) Basophils (%) (Auto) 1 % (0-3) 1 % (0-3) Neutrophils # (Auto) 5.1 x10^3uL (1.8-7.7) 5.1 x10^3uL (1.8-7.7) Lymphocytes # (Auto) 1.4 x10^3/uL (1.0-4.8) 1.3 x10^3/uL (1.0-4.8) Monocytes # (Auto) 0.9 x10^3/uL (0.0-1.1) 0.7 x10^3/uL (0.0-1.1) Eosinophils # (Auto) 0.1 x10^3/uL (0.0-0.7) 0.1 x10^3/uL (0.0-0.7) Basophils # (Auto) 0.1 x10^3/uL (0.0-0.2) 0.1 x10^3/uL (0.0-0.2) Magnesium Level 1.3 mg/dL (1.8-2.4) Troponin I Quantitative 0.036 ng/mL (0-0.055) 0.031 ng/mL (0-0.055) 0.037 ng/mL (0-0.055) Physical Exam: Gen.: No apparent distress, alert and oriented 3, sleeping but easily arousable HEENT: Mucous membranes moist, nose and throat clear oral mucosa pink Neck: Supple, nontender with good range of motion and no lymphadenopathy Cardiovascular: Normal S1, S2, no murmur auscultated distal pulses intact Pulmonary: Good air movement with clear breath sounds bilaterally no respiratory distress Abdomen: Soft, nondistended, nontender Extremities: No clubbing cyanosis, trace pitting lower extremity edema bilaterally ASSESSMENT: Right lower lobe pneumonia Tachyarrhythmia Acute on chronic renal failure (resolved) Anorexia Cholelithiasis PLAN: Cardiology consultation today. Continue current treatments including antibiotics. Encourage by mouth intake KEN MENCHACA DO Apr 26, 2018 10:23
[2018-04-26 10:41] VITALS: BP 156/70
[2018-04-26 15:06] VITALS: BP 135/71
[2018-04-26] MEDS: PANTOPRAZOLE 40 MG TABLET. PO SCH (17:57)
[2018-04-26] MEDS: ATORVASTATIN CALCIUM 20 MG TABLET PO SCH (17:57)
[2018-04-26] MEDS: ACETAMINOPHEN 325 MG TABLET PO PRN (18:18)
[2018-04-26 18:22] LABS: CALCIUM 8.2 mg/dL (8.5-10.1); CREATININE 1.6 mg/dL (0.7-1.3); GFR 42.6; MAGNESIUM 1.5 mg/dL (1.8-2.4); POTASSIUM 3.6 mmol/L (3.5-5.1)
[2018-04-26 18:38] VITALS: BP 151/84
[2018-04-26] MEDS ORDERED: IV NORMAL SALINE 1,000ML 1,000 ML IV SCH (20:00)
[2018-04-26] MEDS: ZOLPIDEM 5 MG TABLET. PO SCH (20:49)
[2018-04-26 22:19] VITALS: BP 147/79
[2018-04-27] MEDS: MEROPENEM 500 MG in IV NORMAL SALINE 50ML 50 ML IV SCH ×2 (05:55→14:29)
[2018-04-27 06:02] VITALS: BP 159/77
--- NOTE | 2018-04-27 06:09 | EKG ---
[address] [address] Test Date: 2018-04-27 Test Time: 06:02:16 Pat Name: WILLIAM VASQUEZ Department: Room: 123 A Gender: M Registered Nurse Surgical Services: JUAN : 1945 Requested By: TONEY BOURNE Order Number: [id number] Reading MD: Measurements Intervals [place] Rate: 74 P: 45 CT: 144 QRS: 34 QRSD: 88 T: 15 QT: 392 QTc: 436 Interpretive Statements SINUS RHYTHM VENTRICULAR PREMATURE COMPLEX(ES) ATRIAL PREMATURE COMPLEX(ES) LOW LIMB LEAD VOLTAGE ABNORMAL ECG RI6.01 No previous ECG available for comparison
[2018-04-27] MEDS: GABAPENTIN 400 MG CAPSULE. PO SCH (09:04)
[2018-04-27] MEDS: ASPIRIN 81 MG TAB.CHEW PO SCH (09:04)
[2018-04-27] MEDS: LACTOBACILLUS RHAMNOSUS GG 1 CAPSULE. PO SCH (09:04)
--- NOTE | 2018-04-27 09:48 | PDOC2 ---
AIDS LEBLANC APRN 04/27/18 0948: CONSULT Date of Admission DATE: 04/27/18 TIME: 09:44 Reason for Consult: tachycardia, elevated trop Problem List Problems Medical Problems: (1) Acute kidney injury Status: Acute History of Present Illness Mr Schmitt is a 72 year old male who presented to the ED several days ago with complaints of fever, chills and general malaise. He was admitted, and treated for pneumonia and dehydration. Last PM nursing staff observed an irregular heart rhythm and consult was called. He reports complaints of chest pressure/ heaviness that occurs when he works in the yard. Symptoms have been intermittent over the last year or so and relieved with 15 minutes of rest. He denies dyspnea or congestive symptoms. He denies palpitations, lightheadedness or syncope. He is anxious to go home. Cardiovascular: HTN CENTRAL NERVOUS SYSTEM: Periperal neuropathy GI: GERD Musculoskeletal: Osteoarthritis ENT: Other (cataracts) Renal/: Chronic renal insuff, Benign prostatic enlarg. Past Surgical History shoulder surgery x 3, back surgery x 4, hand surgery, prostate biopsy Family History: Alzheimer's Disease, Asthma, Cancer, Heart Disease, Other ( parkinsons disease) Social History non smoker, no significant ETOH, no illicit drugs Current Medications Current Medications Sodium Chloride 1,000 ml @ 1,000 mls/hr 1X ONCE IV ; Start 04/22/18 at 16:00; Stop 04/22/18 at 16:59; Status DC Sodium Chloride 1,000 ml @ 1,000 mls/hr 1X ONCE IV ; Start 04/22/18 at 16:00; Stop 04/22/18 at 16:59; Status DC Sodium Chloride 1,000 ml @ 1,000 mls/hr 1X ONCE IV ; Start 04/22/18 at 16:30; Stop 04/22/18 at 17:29; Status DC Atorvastatin Calcium (Lipitor) 20 mg DAILYWSUP PO Last administered on at 17:57; Start 04/22/18 at 21:00 Aspirin (Children'S Aspirin) 81 mg DAILY PO Last administered on 04/27/18at 09: 04; Start 04/23/18 at 09:00 Fluoxetine HCl (PROzac) 20 mg DAILYWBKFT PO Last administered on 04/23/18at 08: 31; Start 04/23/18 at 08:00; Stop 04/23/18 at 18:16; Status DC Gabapentin (Neurontin) 800 mg DAILY PO Last administered on 04/27/18 09:04; Start 04/23/18 at 09:00 Pantoprazole Sodium (Protonix) 40 mg DAILYWSUP PO Last administered on 17:57; Start 04/22/18 at 21:00 Zolpidem Tartrate (Ambien) 5 mg PRN QHS PRN PO INSOMNIA Last administered on 22:11; Start 04/22/18 at 20:15 Zolpidem Tartrate (Ambien) 5 mg HS PO Last administered on 04/26/18 20:49; Start 04/22/18 at 21:00 Linezolid 300 ml @ 300 mls/hr Q12H IV Last administered on 04/27/18at 04:53; Start 04/23/18 at 17:00 Acetaminophen (Tylenol) 650 mg PRN Q4HRS PRN PO PAIN / TEMP Last administered on 04/26/18 18:18; Start 04/23/18 at 18:00 Meropenem 500 mg/ Sodium Chloride 50 ml @ 100 mls/hr Q8HRS IV Last administered on 04/27/18 05:55; Start 04/23/18 at 22:00 Sodium Chloride 1,000 ml @ 125 mls/hr Q8H IV Last administered on 04/25/18at 14 :53; Start 04/23/18 at 18:15; Stop 04/25/18 at 16:19; Status DC Lactobacillus Rhamnosus (Culturelle) 1 cap BID PO Last administered on at 09:04; Start 04/23/18 at 21:00 Ondansetron HCl (Zofran) 4 mg PRN Q6HRS PRN IV NAUSEA/VOMITING Last administered on 04/24/18 09:03; Start 04/24/18 at 08:45 Sodium Chloride 1,000 ml @ 100 mls/hr Q10H IV Last administered on 04/26/18 00:19; Start 04/25/18 at 16:05; Stop 04/26/18 at 02:04; Status DC Aspirin (Children'S Aspirin) 324 mg 1X ONCE PO Last administered on 04/25/18at 23:45; Start 04/25/18 at 23:45; Stop 04/25/18 at 23:46; Status DC Nitroglycerin (Nitrostat) 0.4 mg PRN Q5MIN PRN SL CHEST PAIN Last administered on 04/25/18at 23:45; Start 04/25/18 at 23:30 Sodium Chloride 1,000 ml @ 75 mls/hr [id number] IV Last administered on at 20:51; Start 04/26/18 at 20:00 Active Scripts Active Reported Losartan-Hctz 100-25 Mg Tab (Losartan/Hydrochlorothiazide) 1 Each Tablet 1 Tab PO DAILY Lipitor (Atorvastatin Calcium) 20 Mg Tablet 1 Tab PO DAILYWSUP Mobic (Meloxicam) 15 Mg Tablet 1 Tab PO DAILY Omeprazole 20 Mg Capsule.dr 1 Cap PO DAILYWSUP Aspirin 81 Mg Tab.chew 81 Mg PO DAILY Gabapentin 800 Mg Tablet 800 Mg PO DAILY Prozac (Fluoxetine Hcl) 20 Mg Capsule 1 Cap PO DAILYWBKFT Ambien (Zolpidem Tartrate) 10 Mg Tablet 1 Tab PO QHS Allergies: Coded Allergies: Penicillins (Verified Allergy, Intermediate, 04/22/18) codeine (Verified Allergy, Intermediate, 04/22/18) Review of System as per HPI General: Alert, Oriented X3, Cooperative HEENT: Atraumatic, EOMI, Other (no carotid bruits) Lungs: Other (decreased right base, otherwise clear) Heart: Other (irregular rhythm, normal rate, no gallops, clicks or rubs, no obvious murmurs.) Abdomen: Normal bowel sounds, Soft, No tenderness Extremities: No cyanosis, No edema, Normal pulses Neuro: Normal speech, Strength at 5/5 X4 ext Psych/Mental Status: Mental status NL, Mood NL VITALS Vital Signs Date Time Temp Pulse Resp B/P (MAP) Pulse Ox O2 Delivery O2 Flow Rate FiO2 04/27/18 08:00 Room Air 04/27/18 06:02 98.4 73 16 159/77 (104) 95 Labs Laboratory Tests Test 04/25/18 22:18 04/26/18 02:16 04/26/18 06:25 04/26/18 17:50 White Blood Count 7.5 x10^3/uL (4.0-11.0) 7.3 x10^3/uL (4.0-11.0) Red Blood Count 3.49 x10^6/uL (4.30-5.70) 3.51 x10^6/uL (4.30-5.70) Hemoglobin 10.9 g/dL (13.0-17.5) 11.1 g/dL (13.0-17.5) Hematocrit 31.2 % (39.0-53.0) 31.5 % (39.0-53.0) Mean Corpuscular Volume 89 fL (79-100) 90 fL (79-100) Mean Corpuscular Hemoglobin 31 pg (25-35) 32 pg (25-35) Mean Corpuscular Hemoglobin Concent 35 g/dL (31-37) 35 g/dL (31-37) Red Cell Distribution Width 13.8 % (11.5-14.5) 13.5 % (11.5-14.5) Platelet Count 177 x10^3/uL (140-400) 186 x10^3/uL (140-400) Neutrophils (%) (Auto) 67 % (31-73) 70 % (31-73) Lymphocytes (%) (Auto) 19 % (24-48) 18 % (24-48) Monocytes (%) (Auto) 12 % (0-9) 10 % (0-9) Eosinophils (%) (Auto) 1 % (0-3) 2 % (0-3) Basophils (%) (Auto) 1 % (0-3) 1 % (0-3) Neutrophils # (Auto) 5.1 x10^3uL (1.8-7.7) 5.1 x10^3uL (1.8-7.7) Lymphocytes # (Auto) 1.4 x10^3/uL (1.0-4.8) 1.3 x10^3/uL (1.0-4.8) Monocytes # (Auto) 0.9 x10^3/uL (0.0-1.1) 0.7 x10^3/uL (0.0-1.1) Eosinophils # (Auto) 0.1 x10^3/uL (0.0-0.7) 0.1 x10^3/uL (0.0-0.7) Basophils # (Auto) 0.1 x10^3/uL (0.0-0.2) 0.1 x10^3/uL (0.0-0.2) Sodium Level 137 mmol/L (136-145) 138 mmol/L (136-145) 137 mmol/L (136-145) Potassium Level 3.7 mmol/L (3.5-5.1) 3.8 mmol/L (3.5-5.1) 3.6 mmol/L (3.5-5.1) Chloride Level 103 mmol/L (98-107) 106 mmol/L (98-107) 105 mmol/L (98-107) Carbon Dioxide Level 24 mmol/L (21-32) 26 mmol/L (21-32) 25 mmol/L (21-32) Anion Gap 10 (6-14) 6 (6-14) 7 (6-14) Blood Urea Nitrogen 14 mg/dL (8-26) 12 mg/dL (8-26) 11 mg/dL (8-26) Creatinine 1.7 mg/dL (0.7-1.3) 1.6 mg/dL (0.7-1.3) 1.6 mg/dL (0.7-1.3) Estimated GFR (Cockcroft-Gault) 39.7 42.6 42.6 BUN/Creatinine Ratio 8 (6-20) Glucose Level 94 mg/dL (70-99) 140 mg/dL (70-99) 106 mg/dL (70-99) Calcium Level 7.6 mg/dL (8.5-10.1) 8.1 mg/dL (8.5-10.1) 8.2 mg/dL (8.5-10.1) Magnesium Level 1.3 mg/dL (1.8-2.4) 1.5 mg/dL (1.8-2.4) Total Bilirubin 0.8 mg/dL (0.2-1.0) Aspartate Amino Transf (AST/SGOT) 21 U/L (15-37) Alanine Aminotransferase (ALT/SGPT) 18 U/L (16-63) Alkaline Phosphatase 47 U/L (46-116) Troponin I Quantitative 0.036 ng/mL (0-0.055) 0.031 ng/mL (0-0.055) 0.037 ng/mL (0-0.055) Total Protein 5.2 g/dL (6.4-8.2) Albumin 2.4 g/dL (3.4-5.0) Albumin/Globulin Ratio 0.9 (1.0-1.7) Images EKG - sinus rhythm, short 4 beats PAT, no acute ischemic changes CXR - Impression: Negative portable chest. Assessment/Plan 1. Exertional chest pain c/w angina - CE indeterminate x 3, no acute ischemic changes on EKG. Continue aspirin, statin, start beta yaneli. Will check echo and MPI today. If normal, ok for home today with risk factor reduction and outpatient follow up. 2. accelerated hypertension - add beta yaneli 3. PACs/PVCs - add beta yaneli. Replace Mg. 4. Pneumonia - per IM 5. cholelithiasis - per IM 6. hyperlipidemia - check lipids, continue statin. TONEY BOURNE MD 04/27/18 1524: CONSULT Assessment/Plan Patient seen and examined 1. Exertional chest pain c/w angina - CE indeterminate x 3, no acute ischemic changes on EKG. continue present medications. MPI and echo today. 2. accelerated hypertension - beta yaneli added 3. PACs/PVCs - beta yaneli. Replace Mg. 4. Pneumonia - per IM 5. cholelithiasis - per IM 6. hyperlipidemia - check lipids, continue statin. Thank you for allowing us to participate in the care of your patient. ADIS LEBLANC APRN Apr 27, 2018 09:48 TONEY BOURNE MD Apr 27, 2018 15:24
[2018-04-27] MEDS: MAGNESIUM OXIDE 400 MG TABLET PO SCH ×2 (10:27→14:29)
[2018-04-27 11:00] VITALS: BP 173/86
[2018-04-27] MEDS ORDERED: REGADENOSON 0.4 MG/5 ML DISP.SYRIN. IV ONE (12:00)
--- NOTE | 2018-04-27 13:53 | PN ---
DATE: 04/27/2018 SUBJECTIVE: The patient apparently has an episode of tachycardia yesterday and his 3 sets of cardiac enzymes showed troponin has a slightly elevated. We did consult the loading dock helper and basically the Cardiology team recommended an echocardiogram with possible stress test and echocardiogram is scheduled later this afternoon. PHYSICAL EXAMINATION: GENERAL: When I saw him today, he looked well and was clearly in no apparent respiratory distress, pale, but no jaundice, cyanosis, or thyromegaly. No jugular venous distension. No lower limb edema. VITAL SIGNS: His heart rate was 73, blood pressure 159/77, temperature was 98.4, respiratory rate was 16, and oxygen saturation was 95%. HEAD, EYES, EARS, NOSE AND THROAT: Normocephalic, atraumatic. NECK: Supple. HEART: Showed normal first and second sounds. No gallop, rub or murmur. CHEST: Clear to auscultation. No crepitation or rhonchi. ABDOMEN: Distended, soft, nontender. No guarding or rigidity. No organomegaly. All hernial orifice intact. Bowel sounds normal. NEUROLOGIC: He was awake, alert, responding appropriately. All cranial nerves intact. He moves extremities without difficulty, ambulates without assistance or assistive devices. His intake over the last 24 hours was 1900, output is 1150. LABORATORY DATA: His lab work this morning showed a serum sodium 137, potassium 3.6, chloride 105, bicarbonate 25, anion gap of 7, BUN 11, creatinine 1.6, estimated GFR was 43 mL per minute, his glucose 106, calcium was 8.2, magnesium was 1.5. His white cell count was 7300, hemoglobin 11, hematocrit 32, MCV 90 and platelet count of 196,000. His sedimentation rate was 18 mm per hour and C-reactive protein was 68 mg/dL. He has 3 sets of cardiac enzymes showed a troponin to be 0.036. ASSESSMENT: 1. Community-acquired pneumonia for which he is on IV meropenem as well as Zyvox. 2. Acute on chronic kidney injury. The patient is back to his baseline creatinine 1.6 mg/dL. 3. Other medical problems include; a. Hypertension. b. Hyperlipidemia. c. Osteoarthritis. d. Benign prostatic hypertrophy. PLAN: To discontinue Zyvox and await the outcome of the echocardiogram as he might require a stress test to be done as an inpatient and/or outpatient depends on the finding an echocardiogram. YUN SHANKAR MD DR: JORGE/rajat JOB#: [id number] / [id number]
[2018-04-27 15:14] VITALS: BP 123/66
--- NOTE | 2018-04-27 15:19 | RAD ---
MR#: [id number] Date of Study: 04/27/2018 Ordering Physician: ADIS LEBLANC, Referring Physician: RASHID HESS Tech: XU Winslow ARRT (R) (N) APPROVED REPORT Test Type: Pharmacological Stress Nurse/Tech: KATELYN SMITH Test Indications: CP Cardiac History: Hypertension Medications: See Electronic Medical Record Medical History: See Electronic Medical Record Resting ECG: SR NO ACUTE ABNORMALITIES Resting Heart Rate: 62 bpm Resting Blood Pressure: 166/79mmHg Pretest Chest Pain: None Nurse/Tech Notes Consent: The procedure was explained to the patient in lay terms. Informed consent was witnessed. Elia eout was entered into [employer]. History and Stress Test performed by XU Winslow ARRT (R) (N) Pharm. Details Pharmacologic stress testing was performed using 0.4mg per 5ml of regadenoson given intravenously ove r 7-10 seconds. Stress Symptoms SOB POST EXERCISE Reason for Termination: Infusion complete Target HR: No Max HR: 98 bpm 81% of Maximum Predicted HR: 124 bpm Exercise duration: 6 min:sec, Stage Max Blood Pressure: 156/80mmHg Blood Pressure response to exercise: Normal blood pressure response during stress. Chest Pain: No. Arrhythmia: No. ST Change: No. INTERPRETATION Stress EKG Conclusion: Baseline EKG showed sinus rhythm. No ischemic changes at peak stress. No arr hythmias. Imaging Protocol IMAGE PROTOCOL: Stress Tc-99m/rest Tc-99m 2 days Rest: Stress: Viability: Radiopharm.Tc99m Sestamibi Eyzo24wRe Img Date 04/27/2018 Inj-Img [id number]. Stress Admin Site: IV - Right AntecubitalAdministrator: XU Winslow ARRT (R)(N) STRESS DATA End Diast. Vol.92.0mlAv. Heart Rate87.0bpm LVEDV index BSA2.0mlCardiac Output0.1L/min End Syst. Vol.18.0mlCO Index BSA6.5L/min LVESV index BSA0.0mlMyocardial Jdrj930.0g Eject. Bshyttsz57.0% Stress Rates Pk. Fill Rate4.05EDV/secLVtime Pk. Fill 194.10msec Pk. Empty Rate5.29ESV/secLVtime Pk. Kzltl661.99msec / Pk. Fill2.19EDV/sec Stress Scores Regional WT0.00Summed WT3.00 Regional WM0.00Summed WM0.00 LV Perfusion Stress scintigraphic images did not show any significant perfusion defects. Wall Motion Normal left ventricular systolic function with ejection fraction calculated at 80%. LV Perf. Quant 17 Seg. SSS4.00 Stress Defect Extent (% LAD)11.30Rest Defect Extent (% LAD)Rev. Defect Extent (% LAD)0.00 Stress Defect Extent (% LCX) 3.80Rest Defect Extent (% LCX)Rev. Defect Extent (% LCX)0.00 Stress Defect Extent (% RCA)0.00Rest Defect Extent (% RCA)Rev. Defect Extent (% RCA)0.00 Stress Defect Extent (% EVARISTO)7.60Rest Defect Extent (% EVARISTO)Rev. Defect Extent (% EVARISTO)0.00 Conclusion 1. Regadenoson cardioisotope stress test did not show any evidence of ischemia or infarct. 2. Normal left ventricular systolic function with ejection fraction calculated at 80%. 3. Low risk for cardiac events. Signed by : Johnnie Duffy, Electronically Approved : 04/27/2018 15:18:19
[2018-04-27] MEDS ORDERED: METOPROLOL SUCC 24HR ER 25 MG TAB.ER.24H. PO SCH (16:00)
[2018-04-27] MEDS: PANTOPRAZOLE 40 MG TABLET. PO SCH (16:42)
[2018-04-27] MEDS: ATORVASTATIN CALCIUM 20 MG TABLET PO SCH (16:42)
[2018-04-27 16:43] VITALS: BP 123/66
--- NOTE | 2018-04-27 17:51 | CARD ---
MR#: [id number] Date of Study: 04/27/2018 Ordering Physician: ADIS LEBLANC, Referring Physician: YUN SHANKAR Tech: Marsha Bright RDCS APPROVED REPORT EXAM: Two-dimensional and M-mode echocardiogram with Doppler and color Doppler. Other Information Quality : Good INDICATION Abnormal Troponin 2D DIMENSIONS RVDd2.5 (2.9-3.5cm)Left Atrium(2D)4.2 (1.6-4.0cm) IVSd1.1 (0.7-1.1cm)Aortic Root(2D)2.8 (2.0-3.7cm) LVDd4.8 (3.9-5.9cm)LVOT Diameter2.0 (1.8-2.4cm) PWd1.1 (0.7-1.1cm)LVDs2.7 (2.5-4.0cm) FS (%) 30.0 %SV80.0 ml LVEF(%)60.0 (>50%) Aortic Valve AoV Peak Hunter.143.5cm/sAoV VTI27.8cm AO Peak GR.8.2mmHgLVOT Peak Hunter.115.6cm/s LVOT VTI 23.02cmAO Mean GR.4mmHg SURAJ (VMAX)2.73nb9SBO (VTI)2.57cm2 Mitral Valve MV E Xjkzrbpf68.8cm/sMV DECEL FYLX305mr MV A Jrettmdz22.8cm/sE/A Ratio0.8 Tricuspid Valve TR P. Zpwatpep175fj/sRAP LVPNCYCR5trFd TR Peak Gr.36hoLwRPHP32khGl Pulmonary Vein S1 Pznclmey02.2cm/sD2 Scajapxn50.2cm/s LEFT VENTRICLE The left ventricle is normal size. There is normal left ventricular wall thickness. The left ventricu lar systolic function is normal. The Ejection Fraction is 55-60%. There is normal LV segmental wall m otion. Transmitral Doppler flow pattern is Grade I-abnormal relaxation pattern. RIGHT VENTRICLE The right ventricle is normal size. The right ventricular systolic function is normal. ATRIA The left atrium is mildly dilated. The right atrium size is normal. The interatrial septum is intact with no evidence for an atrial septal defect or patent foramen ovale as noted on 2-D or Doppler imagi ng. AORTIC VALVE The aortic valve is calcified but opens well. Doppler and Color Flow revealed trace aortic regurgitat ion. There is no significant aortic valvular stenosis. MITRAL VALVE The mitral valve is calcified but opens well. There is no evidence of mitral valve prolapse. There is no mitral valve stenosis. Doppler and Color-flow revealed mild mitral regurgitation. TRICUSPID VALVE The tricuspid valve is normal in structure and function. Doppler and Color Flow revealed mild tricusp id regurgitation. There is moderate pulmonary hypertension. The PA pressure was estimated at 42 mmHg. There is no tricuspid valve stenosis. PULMONIC VALVE The pulmonic valve is not well visualized. Doppler and Color Flow revealed mild pulmonic valvular reg urgitation. There is no pulmonic valvular stenosis. GREAT VESSELS The aortic root is normal in size. The ascending aorta is normal in size. The IVC is normal in size a nd collapses >50% with inspiration. PERICARDIAL EFFUSION There is no evidence of significant pericardial effusion. Critical Notification Critical Value: No <Conclusion> The left ventricular systolic function is normal. The Ejection Fraction is 55-60%. There is normal LV segmental wall motion. Transmitral Doppler flow pattern is Grade I-abnormal relaxation pattern. Mild mitral regurgitation. Mild tricuspid regurgitation. The PA pressure was estimated at 42 mmHg. There is no evidence of significant pericardial effusion. Signed by : Johnnie Duffy, Electronically Approved : 04/27/2018 17:50:17
[2018-04-27] MEDS ORDERED: LOSA50TA6 PO (18:13)
[2018-04-27] MEDS ORDERED: METO-239 PO (18:13)
[2018-04-27] MEDS ORDERED: LEVO500T8 PO (18:14)
--- NOTE | 2018-04-28 14:56 | DS ---
DATE OF DISCHARGE: 04/27/2018 HOSPITAL COURSE: The patient is a 72-year-old male patient who initially came with generalized aches and pains, loss of appetite, headache. Has been eating, drinking, and unfortunately continued to take his antihypertensive medications with his diuretics and meloxicam and on evaluation, he was found to have acute on chronic kidney injury with a creatinine that has risen from 1.7-2.8. He was also found to be mildly hypokalemic. We held his diuretic and antihypertensive medication as well as nonsteroidal inflammatory medication. We started him on IV fluid and did initially well on them. He did spike his temperature on the third day and further investigation showed he has left lower lobe pneumonia for which we started him on IV antibiotic in the form of meropenem as well as Zyvox as he is allergic to PENICILLIN and he did very well. On 02/24/2018, he developed an episode of supraventricular tachycardia with a heart rate that went up to 140 and we did 3 sets of cardiac enzyme, showed that the troponin was slightly elevated, for which he was seen by the Cardiology team and the patient underwent a nuclear stress test and it showed that the isotope stress test did not show any evidence of ischemia or infarct, normal left ventricular systolic function with ejection fraction calculated at 80%, low risk for cardiac event and the patient was discharged home on following medications: He was discharged on aspirin 81 mg once a day, atorvastatin calcium 20 mg at bedtime, fluoxetine for Prozac 20 mg once a day, gabapentin 800 mg daily, levofloxacin 500 mg once a day for 5 days, losartan potassium 50 mg once a day, metoprolol succinate 25 mg once a day, omeprazole 20 mg capsule daily and zolpidem tartrate for Ambien 10 mg at bedtime. ASSESSMENT: 1. Community-acquired pneumonia for which he was treated with meropenem and Zyvox and was discharged to continue to finish treatment by the oral levofloxacin. 2. Acute on chronic kidney injury. His serum creatinine came down from 2.4-1.6. Other medical problems include: A. Hypertension. B. Hyperlipidemia. C. Osteoarthritis. D. Benign prostatic hypertrophy. YUN SHANKAR MD DR: JORGE/rajat JOB#: [id number] / [id number]
== END 2018-04-27 18:40 | disposition home or self-care (01) | DRG 682 ==
LOC: ER 15:28 → 1 SOUTH 17:00
PROVIDERS: ADMIT Internal Medicine; ATTEND Internal Medicine
DX: N17.0 Acute kidney failure with tubular necrosis (principal); J18.9 Pneumonia, unspecified organism; E87.6 Hypokalemia; N18.9 Chronic kidney disease, unspecified; E78.5 Hyperlipidemia, unspecified; E86.0 Dehydration; G62.9 Polyneuropathy, unspecified; H26.9 Unspecified cataract; I12.9 Hypertensive chronic kidney disease with stage 1 through stage 4 chronic kidney disease, or unspecified chronic kidney disease; I49.3 Ventricular premature depolarization; K21.9 Gastro-esophageal reflux disease without esophagitis; K80.20 Calculus of gallbladder without cholecystitis without obstruction; M15.9 Polyosteoarthritis, unspecified; N40.0 Benign prostatic hyperplasia without lower urinary tract symptoms; Z80.0 Family history of malignant neoplasm of digestive organs; Z82.0 Family history of epilepsy and other diseases of the nervous system; Z82.49 Family history of ischemic heart disease and other diseases of the circulatory system; Z82.5 Family history of asthma and other chronic lower respiratory diseases; Z88.5 Allergy status to narcotic agent; Z88.0 Allergy status to penicillin; Z79.82 Long term (current) use of aspirin; Z79.899 Other long term (current) drug therapy
CPT/HCPCS: 36415; 71045; 74176; 76700; 78452; 80048; 80053; 80061; 81001; 82550; 83735; 84484; 85025; 85027; 85651; 86140; 87040; 93005; 93017; 93306; 96374; 96375; A9500; J2020; J2185; J2405; J2785; 99285-25; J7030

== ENCOUNTER 2020-09-09 11:22 | Emergency (ER) | payer MEDICARE ==
[~2020-09-09] VITALS: Ht 172.7 cm; Wt 77.5 kg
[2020-09-09 11:22] VITALS: BP 124/72
[~2020-09-09 11:22] MED LIST: ASPI-630 PO; ATOR20TA PO; FLUO20CA16 PO; GABA800T5 PO; LEVO500T8 PO; LOSA1TAB22 PO; LOSA50TA86 PO; MELO15TA6 PO; METO-239 PO; OMEP20CA16 PO; ZOLP10TA PO
--- NOTE | 2020-09-09 12:01 | PHYS DOC ---
Past History Past Medical History: Anxiety, GERD, High Cholesterol, Hypertension, Prostatitis Additional Past Medical Histor: back pain Past Surgical History: No Surgical History Alcohol Use: None Drug Use: None Adult General Chief Complaint Chief Complaint: FATIGUE HPI HPI Patient is a 75-year-old male who presents for generalized fatigue. Onset was 1 week ago without any known inciting event, trauma or exposure. Nothing known makes better or worse. Patient denies being in any pain, has been afebrile. Reports he has been more tired than usual on a daily basis and has had decrease in p.o. intake due to decreased appetite. Patient is here per his 's request for evaluation and to get tested for COVID-19 given current pandemic Review of Systems Review of Systems Fourteen body systems of review of systems have been reviewed. See HPI for pertinent positives and negative responses, other zimmer all other systems are negative, non-pertinent or non-contributory Allergies Allergies Allergies Coded Allergies Type Severity Reaction Last Updated Verified Penicillins Allergy Intermediate 04/22/18 Yes codeine Allergy Intermediate 04/22/18 Yes Physical Exam Physical Exam Constitutional: Well developed, well nourished, no acute distress, non-toxic appearance. HENT: Normocephalic, atraumatic, bilateral external ears normal, oropharynx moist, no oral exudates, nose normal. Eyes: PERRLA, EOMI, conjunctiva normal, no discharge. Neck: Normal range of motion, no tenderness, supple, no stridor. Cardiovascular: Heart rate regular, sinus rhythm, no murmurs rubs or gallops Lungs & Thorax: Bilateral breath sounds clear to auscultation Abdomen: Bowel sounds normal, soft, no tenderness, no masses, no pulsatile masses. Nonsurgical abdomen, no peritoneal signs Skin: Warm, dry, no erythema, no rash. Back: No tenderness, no CVA tenderness. Extremities: No tenderness, no cyanosis, no clubbing, ROM intact, no edema. Neurologic: Alert and oriented X 3, grossly normal motor & sensory function, no focal deficits noted. Psychologic: Affect normal, judgement normal, mood normal. Current Patient Data Vital Signs Vital Signs Date Time Temp Pulse Resp B/P (MAP) Pulse Ox O2 Delivery O2 Flow Rate FiO2 09/09/20 11:22 97.5 84 16 124/72 (89) 99 Room Air EKG EKG [] Radiology/Procedures Radiology/Procedures [] Heart Score HEART Score for Chest Pain: HEART Score for Chest Pain Response (Comments) Value History Slighlty/Non-Suspicious 0 Age > 65 2 Risk Factors 1 or 2 Risk Factors 1 Total 3 Risk Factors: Risk Factors: DM, Current or recent (<one month) smoker, HTN, HLP, family history of CAD, obesity. Risk Scores: Risk Factors: DM, Current or recent (<one month) smoker, HTN, HLP, family history of CAD, obesity. Course & Med Decision Making Course & Med Decision Making ABCs unremarkable, patient nontoxic-appearing and ambulatory, tolerating p.o. Patient tested for Covid, advised to self quarantine until results are communicated and further instructions are given to him. He was understandable on this Strict return precautions were discussed with good understanding by patient, all questions and concerns addressed prior to ER departure in stable condition Dragon Disclaimer Dragon Disclaimer This electronic medical record was generated, in whole or in part, using a voice recognition dictation system. Departure Departure: Impression: Primary Impression: Person under investigation for COVID-19 Disposition: 01 DC HOME SELF CARE/HOMELESS Condition: STABLE Referrals: LIZZY LOVE MD (PCP) Additional Instructions: As discussed prior to ER departure, please self quarantine as instructed until you are COVID-19 results are communicated to you. I would recommend calling your primary care physician in the meantime to discuss your ER visit today to schedule outpatient follow-up whenever safe for you to do so Please utilize the following instructions regarding your new diagnosis of being a person under investigation for COVID-19. If you have any questions, concerns, or development/exacerbation of concerning signs or symptoms at present prior to outpatient follow-up please do not hesitate to come back for repeat evaluation Is a pleasure to take care of you and I wish you a speedy recovery! Home Care Instructions for Patients with Mild Respiratory Infection Most people with respiratory infections like colds, the flu, and Coronavirus Disease (COVID-19) will have mild illness and can get better with appropriate home care and without the need to see a provider. People who are elderly, , or have a weak immune system, or other medical problem are at higher risk of more serious illness or complications. It is recommended that they carefully monitor their symptoms closely and seek medical care early if their symptoms get worse. Treatment There is no specific treatment for most viruses including those that that cause the common cold and those that cause COVID-19. Sometimes there is treatment for the viruses that cause influenza if given early. Antibiotics treat infections caused by bacteria, but they do not work against viruses.Most people recover on their own from these viruses, including COVID-19. Here are steps that you can take to help you get better: Rest Drink plenty of fluids Take icou-gbt-leouqoj cold and flu medications to reduce fever and pain. Follow the instructions on the package, unless your doctor gave you instructions. Note that these medicines do not ``cure the illness and therefore do not stop you from spreading germs. Children should not be given medication that contains aspirin (acetylsalicylic acid) because it can cause a rare but serious illness called Levy syndrome. Medicines without aspirin include acetaminophen (Tylenol) and ibuprofen (Advil, Motrin). Children younger than age 2 should not be given any hoaq-hau-yflmgrd cold medications without first speaking with a doctor.Seeking Medical Care You should seek medical care if you are not getting better within a week, or if your symptoms get worse. If you are elderly, , have a weak immune system, or other medical problems, call your doctor right away. It is best to call ahead of time to discuss your symptoms, if possible. This may allow you to receive the advice you need by phone. By avoiding a visit to a healthcare facility, you protect yourself from getting a new infection and protect others from catching an infection from you. If you do visit a healthcare facility, put on a mask to protect other patients and staff. It is recommended that you seek medical care for serious symptoms, such as: People with potentially life-threatening symptoms should call 911. If possible, put on a facemask before emergency medical services arrive. PROTECTING OTHERS Follow the steps below to help prevent the disease from spreading to people in your home and community.Stay home when you are sick Stay home - do not go to work, school, or public areas. Stay home for at least 24 hours after your symptoms have gone away without the use of fever-reducing medicines. If you must leave home while you are sick, try to avoid using public transportation, ride-shares, and taxis. Wear a mask if possible. Separate yourself from other people and animals in your home Stay in a specific room and away from other people in your home as much as possible. Use a separate bathroom, if available. Try to stay at least 6 feet from others. Do not handle pets or other animals while you are sick. Cover your coughs and sneezes Cover your mouth and nose with a tissue when you cough or sneeze. Throw used tissues in a lined trash can; immediately wash your hands. Avoid sharing personal household items Do not share dishes, drinking glasses, cups, eating utensils, towels, or bedding with other people or pets in your home. Wash them thoroughly with soap and water after use. Clean your hands often Wash your hands often with soap and water for at least 20 seconds. If soap and water are not available, clean your hands with an alcohol-based hand candle extrusion machine operator that contains at least 60% alcohol, covering all surfaces of your hands and rubbing them together until they feel dry. Use soap and water if your hands are visibly dirty. Clean all ``high-touch surfaces every day High touch surfaces include counters, tabletops, doorknobs, bathroom fixtures, toilets, phones, keyboards, tablets, and bedside tables. Also, clean any surfaces that may have body fluids on them. Use a household cleaning spray or wipe, according to the product label instructions. COVID-19 (Novel Coronavirus) FAQs for Inquiring Patients What do you do if you are worried that you have been exposed to COVID-19 but are without any symptoms? If you develop symptoms that may indicate an infection, contact your physician. These include fever, cough, and shortness of breath. Testing is not available for asymptomatic individuals, regardless of travel history. To reduce the chance of getting sick use general infection prevention measures such as hand washing, covering your mouth and nose when you cough or sneeze and discarding any tissues carefully, and staying home when you are sick.Can exceptions be made for patients who are really worried and want to be tested? Presently testing is available through all local Department of Public Health and Centers for Disease Control and Prevention in addition to numerous Urgent Care facilities and Pharmacies. Only patients who meet the updated COVID-19 PUI definition may be tested. We do not control or set the PUI definition or evaluation criteria. We are unable to provide testing to patients who do not meet the strict criteria. Should patients cancel or postpone an upcoming trip? The decision about travel is personal and should be made in the context of a persons underlying health conditions, reason for travel and necessity of travel. Travel insurance generally does not cover cancellations due to concerns of infectious disease outbreaks. The Center for Disease Control has a section on travel notices. Situations are changing frequently and you should monitor the site for updates. Should situations change rapidly in a foreign country while they are traveling, you could be subject to quarantine or restrictions upon return to the [place]. It is best to have a plan on how to return urgently if needed during a trip abroad. Because of how air circulates and is filtered on airplanes, most viruses do not spread easily on airplanes. CDC does not recommend use of facemasks during air travel.What other general precautions are advised? Patients should be instructed to: Avoid close contact with people who are sick. Avoid touching your eyes, nose and mouth. Stay home from work or school when they are sick. If you have a fever, you should remain home until 24 hours after fever resolves. Clean and disinfect frequently touched objects and surfaces using a regular household cleaning spray or wipe. Sneeze/cough into their elbow, not your hand. Practice frequent hand hygiene with soap and water (at least 20 seconds) or alcohol-based hand rub. Consider avoiding crowded places or mass gatherings, especially if you are immunocompromised or have chronic lung disease. There is no evidence to support transmission of COVID-19 from goods imported from [place]. Are there any special precautions that are recommended if I am ? There is not yet any information available about the susceptibility of women to COVID-19. As a general rule, women may be more susceptible to viral respiratory infections and at risk for more severe illness. The CDC guidance for COVID-19 and has answers to questions about transmission during delivery, as well as other situations. Should food, water, or medications be stockpiled? Should people telecommute? The CDC has excellent information on this. Please visit the CDCs guidance for getting your household ready for COVID-19. What should I do if I start feeling sick at work? And what should the workplace do for anyone exposed? Anyone who is sick with a fever and cough should stay home from work until at least 24 hours after resolution of fever, regardless of concerns for COVID-19. It is still influenza (flu) season and influenza remains far more common. GERRY DUTTA DO Sep 09, 2020 12:01
== END 2020-09-09 12:02 | disposition home or self-care (01) ==
LOC: ER 11:22
DX: R53.83 Other fatigue (principal); F41.9 Anxiety disorder, unspecified; K21.9 Gastro-esophageal reflux disease without esophagitis; E78.00 Pure hypercholesterolemia, unspecified; I10 Essential (primary) hypertension; Z20.828 Contact with and (suspected) exposure to other viral communicable diseases; Z88.0 Allergy status to penicillin; Z88.5 Allergy status to narcotic agent
CPT/HCPCS: 99283; C9803; U0003